=== PATIENT | female | born 1995 | race Hispanic/Latino ===

== ENCOUNTER 2018-06-22 03:56 | Emergency (ER) | payer OTHER ==
[2018-06-22] MEDS ORDERED: LIDOCAINE 2%-EPI 1:200,000 20 ML VIAL IJ ONE (05:10)
[2018-06-22] MEDS ORDERED: CLINDAMYCIN 600 MG/D5% WATER 50 ML IV ONE (05:53)
[2018-06-22] MEDS ORDERED: IBUPROFEN 600 MG TABLET ONE (06:43)
== END 2018-06-22 06:53 | disposition home or self-care (01) ==
LOC: EDH 03:56
DX: L02.512 Cutaneous abscess of left hand (principal); L03.114 Cellulitis of left upper limb; Z88.2 Allergy status to sulfonamides; Z72.0 Tobacco use
CPT/HCPCS: 10060; 81025; 96365; 99284; J3490 ×2